=== PATIENT | male | born 1995 | race Caucasian/White ===

== ENCOUNTER 2021-09-04 23:03 | Emergency (ER) | payer OTHER ==
[2021-09-04 23:12] VITALS: BP 134/79; PULSE 93; TEMP 98.5; BMI 29.7
[2021-09-04] MEDS ORDERED: ACETAMINOPHEN 325 MG TABLET (FP) PO ONE (23:42)
[2021-09-05] MEDS ORDERED: ACETAMINOPHEN 325 MG TABLET (FP) ONE (00:01)
[2021-09-05] MEDS ORDERED: KETOROLAC TROMETHAMINE 30 MG/1 ML VIAL IM ONE (01:32)
[2021-09-05] MEDS ORDERED: KETOROLAC TROMETHAMINE 30 MG/1 ML VIAL ONE (01:36)
== END 2021-09-05 02:11 | disposition home or self-care (01) ==
LOC: JER 23:03
PROC: 3E0233Z Introduction of Anti-inflammatory into Muscle, Percutaneous Approach (ICD-10-PCS; principal; 2021-09-04)
DX: M79.672 Pain in left foot (principal)
CPT/HCPCS: 73610-TC-LT-FY; 73630-TC-LT; 99284-25